=== PATIENT | female | born 1980 | race Caucasian/White ===

== ENCOUNTER 2016-07-28 13:10 | Emergency (ER) | payer OTHER ==
[~2016-07-28] VITALS: Ht 172.7 cm; Wt 89.6 kg
[~2016-07-28 13:10] MED LIST: CALC200T3 PO; IBUP-1222 PO; NIFE30TA2 PO; OMEG500C3 PO; OXYC-302 PO; PREN1TAB60 PO
[2016-07-28 13:12] VITALS: BP 136/88
[2016-07-28] MEDS ORDERED: ONDANSETRON ODT 4 MG PO ONE (14:00)
[2016-07-28] MEDS ORDERED: SODIUM CHLORIDE 0.9% 1,000ML IVBOLUS ONE (14:00)
[2016-07-28] MEDS ORDERED: SODIUM CHLORIDE FLUSH 10ML SYR IVF ONE (14:00)
[2016-07-28 15:03] LABS: HEMOGLOBIN 13.4 g/dL (11.7-16.4)
[2016-07-28 15:10] LABS: BLOOD UREA NITROGEN 13 mg/dL (7-18)
[2016-07-28] MEDS ORDERED: MISOPROSTOL 100 MCG TABLET PO ONE (16:00)
== END 2016-07-28 16:05 | disposition home or self-care (01) ==
LOC: ED 13:45
DX: O72.1 Other immediate postpartum hemorrhage (principal)
CPT/HCPCS: 36415; 76830; 80048; 82040; 84702; 85025

== ENCOUNTER → 2016-08-12 | Outpatient (CLI) | payer OTHER | END | disposition home or self-care (01) | LOC: CFH 14:20 | PROVIDERS: ATTEND Obstetrics & Gynecology Gynecology | DX: N63 Unspecified lump in breast (principal) ==